=== PATIENT | female | born 1955 | race American Indian/Alaskan Native ===

== ENCOUNTER 2019-09-14 08:18 | Emergency (ER) | payer MEDICARE ==
[2019-09-14 09:23] LABS: Basophils % (Auto) 0.6 % (0.0-1.8); Eosinophils # (Auto) 0.1 K/mm3 (0.0-0.4); Eosinophils % (Auto) 0.9 % (0.0-4.3); Hematocrit 34.5 % (30.3-42.9); Hemoglobin 11.4 gm/dl (10.1-14.3); Lymphocytes # (Auto) 1.6 K/mm3 (1.2-5.4); Lymphocytes % (Auto) 24.2 % (13.4-35.0); Mean Corpuscular HGB Conc 33 % (30-34); Mean Corpuscular Volume 85 fl (79-97); Monocytes # (Auto) 0.5 K/mm3 (0.0-0.8); Monocytes % (Auto) 7.2 % (0.0-7.3); Platelet Count 289 K/mm3 (140-440); Red Blood Count 4.05 M/mm3 (3.65-5.03)
[2019-09-14 09:41] LABS: BUN/Creatinine Ratio 17; Blood Urea Nitrogen 10 mg/dL (7-17); Calcium 9.2 mg/dL (8.4-10.2); Hemolysis Index 13
[2019-09-14 09:48] LABS: INR 0.91 (0.87-1.13)
[2019-09-14 09:49] LABS: Partial Thromboplastin Time 24.4 Sec. (24.2-36.6); Thrombin Time 18.9 Sec. (15.1-19.6)
--- NOTE | 2019-09-14 10:20 | Cat Scan Report ---
NONENHANCED CT SCAN OF THE HEAD: INDICATION / CLINICAL INFORMATION: 63 years Female; right side weakness/headache. TECHNIQUE: Routine CT head without contrast. All CT scans at this location are performed using CT dos e reduction for ALARA by means of automated exposure control. COMPARISON: None. FINDINGS: BRAIN / INTRACRANIAL CONTENTS: No acute hemorrhage, mass effect, midline shift, hydrocephalus, or acu te, large territorial infarct. No chronic infarct or focal atrophy. Normal brain volume and ventricul ar/sulcal size for age. No significant white matter abnormality. CRANIOCERVICAL JUNCTION: No significant abnormality. ORBITS: No significant abnormality of visualized orbits. SINUSES / MASTOIDS: No significant abnormality of the visualized paranasal sinuses or mastoid air kandice ls. ADDITIONAL FINDINGS: None. IMPRESSION: No acute parenchymal lesion in the brain Signer Name: Mireille Saunders MD Signed: 09/14/2019 10:15 AM Workstation Name: [id number]
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
[2019-09-14] MEDS ORDERED: traMADol 50 MG TAB ONE (11:03)
[2019-09-14] MEDS ORDERED: traMADol 50 MG TAB PO ONE (11:16)
[2019-09-14 14:45] VITALS: BP 166/85
== END 2019-09-14 13:45 | disposition home or self-care (01) ==
LOC: ED 08:18
DX: R51 Headache (principal); R20.0 Anesthesia of skin; Z90.49 Acquired absence of other specified parts of digestive tract
CPT/HCPCS: 36415; 70450; 80048; 84484; 85025; 85610; 85670; 85730; 93005; 93010